=== PATIENT | female | born 1965 | race Hispanic/Latino ===

== ENCOUNTER 2019-01-20 11:47 | Emergency (ER) | payer SELFPAY ==
[2019-01-20 12:23] LABS: Bilirubin Negative (Negative); Blood, Urine Negative (Negative); Clarity Clear (Clear); Glucose, Urine (Dipstick) Negative (Negative); Leukocyte Negative (Negative); Nitrite Negative (Negative); Protein, Urine (Dipstick) Negative (Neg-Trace); Urobilinogen 0.2 mg/dL (Less than 2)
[2019-01-20 12:27] LABS: #Basophils 0.1 thou/uL (0.0-0.2); #Eosinphils 0.3 thou/uL (0.0-0.7); #Lymphocytes 2.3 thou/uL (1.20-3.40); #Monocytes 0.4 thou/uL (0.11-0.59); #Neutrophils 4.9 thou/uL (1.40-6.50); %Basophils 1.7 % (0.0-1.0); %Eosinophils 3.6 % (0.0-10.0); %Lymphocytes 28.6 % (21.0-51.0); %Monocytes 5.1 % (0.0-10.0); BHCG - Serum Negative (NEGATIVE); Hemoglobin 15.2 g/dL (12.0-16.0); Mean Corpuscular HGB CONC 32.7 g/dL (32.0-36.0); Mean Corpuscular Hemoglobin 30.6 pg (27.0-31.0); Mean Corpuscular Volume 93.6 fL (78.0-98.0); Platelet Count 233 thou/uL (130-400); Pregs Control Background? CLEAR/WHITE (CLR/WHITE); Pregs Control Bar Appear? YES (CONTROL BAR); RBC Distribution Width 11.8 % (11.5-14.5); Red Blood Cell (RBC) Count 4.96 mill/uL (4.20-5.40); White Blood Cell (WBC) Count 8.1 thou/uL (4.8-10.8)
[2019-01-20] MEDS ORDERED: Morphine 4 MG/ML VIAL ONE (12:31)
[2019-01-20] MEDS ORDERED: Ondansetron PF 4 MG/2 ML Vial ONE (12:31)
--- NOTE | 2019-01-20 12:58 | CT ---
CT of abdomen and pelvis: 01/20/2019 COMPARISON: None HISTORY: Periumbilical pain TECHNIQUE: Axial CT imaging at 5 mm intervals from lung bases through pubic symphysis without contras t. Coronal reformatted imaging obtained. FINDINGS: Lack of contrast media limits assessment of the viscera, bowel, vascular structures, and fo r lymphadenopathy. The visualized lung bases demonstrate no acute findings. No free intraperitoneal air or fluid is seen. The liver, spleen, pancreas, gallbladder, and adrenal glands appear unremarkable. No nephrolithiasis or evidence of obstructive uropathy is seen on either side. There is scattered diverticulosis of the descending colon and sigmoid colon with no evidence for dive rticulitis. There is a prominent lobulated fat-containing umbilical hernia. The fat-containing umbilical hernia s ac measures approximately 10 cm in craniocaudal dimension, 12 cm in transverse dimension, and 5 cm in AP dimension. There is minimal stranding of the fat within the hernia sac superiorly, which may si gnify a mild degree of associated inflammatory change. There is no evidence for associated bowel obstruction. No bowel extends into this hernia. Review of the osseous structures demonstrates no worrisome lytic or blastic lesions. Lower lumbar spi ne facet hypertrophy is present. IMPRESSION: Prominent lobulated fat-containing umbilical hernia as detailed above.
[2019-01-20 13:23] LABS: ALT (SGPT) 14 U/L (8-55); AST (SGOT) 9 U/L (5-34); Albumin 4.4 g/dL (3.5-5.0); Alkaline Phosphatase 77 U/L (40-150); Anion Gap 13 mmol/L (10-20); BUN (Urea Nitrogen) 12 mg/dL (9.8-20.1); Bilirubin, Total 0.4 mg/dL (0.2-1.2); Calc. Creatinine Clearance 0 mL/min (70-130); Calcium 9.3 mg/dL (7.8-10.44); Carbon Dioxide 25 mmol/L (22-29); Chloride 104 mmol/L (98-107); Estimated GFR-MDRD 72; Globulin 2.9 g/dL (2.4-3.5); Glucose 128 mg/dL (70-105); Lipase 18 U/L (8-78); Potassium 3.8 mmol/L (3.5-5.1); Protein, Total 7.3 g/dL (6.0-8.3); Sodium 138 mmol/L (136-145)
== END 2019-01-20 13:55 | disposition home or self-care (01) ==
LOC: SCSER 11:47
DX: K42.9 Umbilical hernia without obstruction or gangrene (principal); K21.9 Gastro-esophageal reflux disease without esophagitis; I10 Essential (primary) hypertension; Z79.899 Other long term (current) drug therapy
CPT/HCPCS: 74176; 80053; 81003; 83690; 84703; 85025; 96374; 96375; J2270; J2405

== ENCOUNTER 2019-11-25 09:17 | Emergency (ER) | payer SELFPAY, OTHER ==
[2019-11-26 11:41] LABS: SARS-CoV-2 MS2 Positive; SARS-CoV-2 N Gene Positive; SARS-CoV-2 S Gene Positive; SARS-CoV-2 by NAA DETECTED (NotDetected); SARS-CoV-2 orf1ab Positive
== END 2019-11-25 10:00 | disposition home or self-care (01) ==
LOC: ERS 09:17
DX: U07.1 COVID-19 (principal); I10 Essential (primary) hypertension; K21.9 Gastro-esophageal reflux disease without esophagitis
CPT/HCPCS: 87635; 99283; U0003